=== PATIENT | male | born 1960 | race Caucasian/White ===

== ENCOUNTER 2017-08-25 09:17 | Emergency (ER) | payer BC ==
[2017-08-25 09:37] VITALS: BP 116/77
[2017-08-25] MEDS ORDERED: Acetaminophen TAB* 325 MG PO ONE (09:44)
--- NOTE | 2017-08-25 10:16 | UC ---
FLU HPI - HPI Summary HPI Summary: Pt presents with c/o fever, chills, cough, sore throat, nasal congestion X 2 days. - History of Current Complaint Chief Complaint: UCRespiratory Stated Complaint: RESPIRATORY, SORE THROAT Time Seen by Provider: 08/25/17 09:23 Hx Obtained From: Patient Onset/Duration: Sudden Onset, Lasting Days, Still Present Severity Currently: Moderate Severity Initially: Moderate Pain Intensity: 8 Pain Scale Used: 0-10 Numeric Associated Signs & Symptoms: Positive: Fever, Myalgia, Cough, Sore Throat, Nasal Congestion, Diarrhea Related Hx: Possible Flu/Infectious Exposure - Risk Factors Influenza Risk Factors: Negative - Allergy/Home Medications Allergies/Adverse Reactions: Allergies Allergy/AdvReac Type Severity Reaction Status Date / Time Penicillins Allergy Rash Verified 08/25/17 09:37 Home Medications: Home Medications Acetaminophen [Acetaminophen Extra Strength] 500 mg PO Q4H PRN 08/25/17 [ History Confirmed 08/25/17] L.acidoph,Paracasei, B.lactis [Probiotic] 1 each PO DAILY 08/25/17 [History Confirmed 08/25/17] Meloxicam 7.5 mg PO QAM 08/25/17 [History Confirmed 08/25/17] Multivit 1 tab PO DAILY 08/25/17 [History Confirmed 08/25/17] PMH/Surg Hx/FS Hx/Imm Hx Previously Healthy: Yes - Surgical History Surgical History: Yes Surgery Procedure, Year, and Place: HERNIA REPAIR WITH MESH. LSP REPAIR - Family History Known Family History: Positive: Cardiac Disease - Social History Occupation: Employed Full-time Lives: With Family Alcohol Use: Occasionally Substance Use Type: None Smoking Status (MU): Never Smoked Tobacco Have You Smoked in the Last Year: No Review of Systems Constitutional: Fever, Chills, Fatigue Skin: Negative Eyes: Negative ENT: Sore Throat Respiratory: Cough Cardiovascular: Negative Gastrointestinal: Negative Genitourinary: Negative Motor: Negative Neurovascular: Negative Musculoskeletal: Myalgia Neurological: Negative Psychological: Negative Is Patient Immunocompromised?: No All Other Systems Reviewed And Are Negative: Yes Physical Exam Triage Information Reviewed: Yes Appearance: Ill-Appearing Vital Signs: Initial Vital Signs Temp 101.4 F 08/25/17 09:29 Pulse 93 08/25/17 09:29 Resp 20 08/25/17 09:29 BP 116/77 08/25/17 09:29 Pulse Ox 100 08/25/17 09:29 Vital Signs Reviewed: Yes Eye Exam: Normal ENT Exam: Other ENT: Positive: Nasal congestion Dental Exam: Normal Neck exam: Normal Respiratory Exam: Normal Respiratory: Positive: Normal breath sounds Cardiovascular Exam: Normal Musculoskeletal Exam: Normal Neurological Exam: Normal Psychological Exam: Normal Skin Exam: Normal Diagnostics - Laboratory Diagnostic Studies Completed/Ordered: Rapid Flu: postive Flu B Flu Course/Dx - Differential Dx/Diagnosis Differential Diagnosis/HQI/PQRI: Influenza Provider Diagnoses: Influenza Discharge - Sign-Out/Discharge Documenting (check all that apply): Discharge - Discharge Plan Condition: Stable Disposition: HOME Prescriptions: Albuterol HFA INHALER* [Ventolin HFA Inhaler*] 1 - 2 puff INH Q6H PRN #1 mdi PRN Reason: Sob/Wheezing Benzonatate CAP* [Tessalon 100 MG CAP*] 100 mg PO Q8H PRN #21 cap PRN Reason: Cough Patient Education Materials: Influenza (ED), Acute Cough (ED) Forms: *Work Release Referrals: Leonid Navarro MD [Primary Care Provider] - If Needed - Billing Disposition and Condition Condition: STABLE Disposition: HOME
== END 2017-08-25 10:14 | disposition home or self-care (01) ==
LOC: UCCORT 09:17
DX: J10.1 Influenza due to other identified influenza virus with other respiratory manifestations (principal); Z88.0 Allergy status to penicillin
CPT/HCPCS: 87502; 99212; A9270-GY; G0463